=== PATIENT | male | born 1960 | race African-American/Black ===

== ENCOUNTER 2020-11-06 07:43 | Outpatient (CLI) | payer MEDICARE, SELFPAY ==
--- NOTE | ~2020-11-06 | CT_ITS ---
EXAMINATION:CT lung screening DATE: 11/06/2020 08:19 INDICATION: Personal history of tobacco dependence. Current smoker with 32 pack year history. TECHNIQUE: Computed tomography (CT) of the chest was performed without intravenous contrast. Automate d exposure control and iterative reconstruction technique were employed. The dose-length product (DLP ) was 83.42 mGy-cm. COMPARISON: None. FINDINGS: There is mild atelectasis bilaterally. There is mild bronchiectasis in right middle lobe. T here is a 3 mm nodule in right middle lobe. No pleural effusion. The heart size is normal. There are coronary artery calcifications. No pericardial effusion. There is mild bilateral gynecomastia. There is severe cervical spondylosis and moderate thoracic spondylosis. IMPRESSION: 1. Lung-RADS category 2: Benign appearance or behavior. Continue annual screening with noncontrast lo w-dose chest CT in 12 months. Reviewed, dictated and finalized at location B. IER SUPERVISOR IMPRESSION: 1. Lung-RADS category 2: Benign appearance or behavior. Continue annual screeni ng with noncontrast low-dose chest CT in 12 months.
== END 2020-11-06 07:44 | disposition home or self-care (01) ==
LOC: ANHIMG 07:51
PROVIDERS: PCP Internal Medicine; Visit Provider Nurse Practitioner
DX: Z87.891 Personal history of nicotine dependence (principal); J98.11 Atelectasis; J47.9 Bronchiectasis, uncomplicated; I25.10 Atherosclerotic heart disease of native coronary artery without angina pectoris; N62 Hypertrophy of breast; M47.813 Spondylosis without myelopathy or radiculopathy, cervicothoracic region
CPT/HCPCS: G0297

== ENCOUNTER 2022-04-27 22:04 | Emergency (ER) | payer MEDICARE, SELFPAY ==
[2022-04-27 22:06] VITALS: BP 122/78; PULSE 100; RESP 18; TEMP 36.7; O2SAT 100
--- NOTE | 2022-04-27 22:53 | ED.EYEPROB ---
HPI - Eye Problem General Chief complaint: Eye Problems Stated complaint: eye complaint Time Seen by Provider: 04/27/22 22:28 History of Present Illness HPI Narrative: 61-year-old male presented the emergency room complaints of something in my right eye . Patient states that he was gardening earlier this afternoon, and felt that he might of gotten dirt in his eye. Patient states that he rubbed his eye and was unable to get what ever foreign object out. Patient complains of changes and light sensitivity. Related Data Home Medications Medication Instructions Recorded Confirmed ascorbate calcium (vitamin C) 500 500 mg PO DAILY 10/04/20 03/01/21 mg tablet baclofen 20 mg tablet 20 mg PO TID 10/04/20 03/01/21 cyanocobalamin (vitamin B-12) 1,000 mcg PO DAILY 10/04/20 03/01/21 1,000 mcg capsule gabapentin 300 mg capsule 300 mg PO TID 10/04/20 03/01/21 vitamin E 200 unit capsule 200 unit PO DAILY 10/04/20 03/01/21 Allergies Allergy/AdvReac Type Severity Reaction Status Date / Time Penicillins Allergy Unknown Anaphylaxis,Not Unverified 04/27/22 22:12 Entered,Anaphylaxis,Not Entered Review of Systems Review of Systems: CONSTITUTIONAL: Denies fever, chills, or sweats. EYES: Visual changes right eye, discharge, area of redness ENT: Denies rhinorrhea, congestion, sore throat, or otalgia. CARDIOVASCULAR: Denies chest pain, palpitations, or edema. RESPIRATORY: Denies cough or dyspnea. GASTROINTESTINAL: Denies abdominal pain, nausea, vomiting, or diarrhea. GENITOURINARY: Denies dysuria or hematuria. SKIN: Denies rash or itching. MUSCULOSKELETAL: Denies back pain, joint pain, or myalgia. NEUROLOGIC: Denies headache, numbness, dizziness, or weakness. PSYCHIATRIC: Denies anxiety or depression. [facility] Past Medical History Medical History Osteoarthritis Surgical History Surgical History H/O Spinal surgery Spinal tumor 07/2015 Social History Social History Social History: caffeine-daily Smoking status: Former smoker Smoking end date: 11/30/06 Alcohol intake: current Alcohol use details: 2-3 drinks every day Exam Narrative: GENERAL: Well-appearing, well-nourished, and in no acute distress. HEAD: Normocephalic, atraumatic. EYES: PERRLA and EOMI. purulent drainage noted to the medial and lateral canthus. Linear corneal abrasion noted to the right eye extending from the 4 o'clock position to the 8 o'clock position ENT: Nares clear, no rhinorrhea or epistaxis. Mucous membranes moist. Oropharynx without tonsillar hypertrophy exudate or other lesions. Bilateral TMs pearly mcneill nonbulging CHEST: Clear to auscultation. No respiratory distress. No wheezes rales or rhonchi HEART: Regular rate and rhythm. No murmur heard. Normal peripheral pulses. EXTREMITIES: Normal range of motion. No edema. SKIN: Warm, dry, no rash. NEURO: No focal deficits. Alert and oriented x3. PSYCH: Normal mood and affect. Course Vital Signs Vital signs: Vital Signs Temperature 36.7 C 04/27/22 22:06 Pulse Rate 100 04/27/22 22:06 Respiratory Rate 18 04/27/22 22:06 Blood Pressure 122/78 04/27/22 22:06 Pulse Oximetry 100 04/27/22 22:06 Oxygen Delivery Room Air 04/27/22 22:06 Temperature 36.7 C 04/27/22 22:06 Pulse Rate 100 04/27/22 22:06 Respiratory Rate 18 04/27/22 22:06 Blood Pressure 122/78 04/27/22 22:06 Pulse Oximetry 100 04/27/22 22:06 Oxygen Delivery Room Air 04/27/22 22:06 Discharge Plan Discharge Clinical Impression: Corneal abrasion Patient Disposition: Home, Self-Care Condition: Stable Instructions: Antibiotic Form Prescriptions: New polymyxin B sulf-trimethoprim 10,000 unit- 1 mg/mL drops 1 drp RIGHT EYE Q3H 5 Days Qty: 10 0RF Rx Instructions: while awake; do not exceed 6 d
[2022-04-27] MEDS: TETANUS,DIPHTHERIA,AC PERTUSSIS ADULT (0.5 ML) BOOSTRIX IM (23:18)
[2022-04-27 23:30] VITALS: BP 126/86; PULSE 76; RESP 14; O2SAT 97
== END 2022-04-27 23:30 | disposition home or self-care (01) ==
LOC: ANHED 23:03
PROVIDERS: Emergency Provider Nurse Practitioner Family; PCP Internal Medicine
DX: S05.01XA Injury of conjunctiva and corneal abrasion without foreign body, right eye, initial encounter (principal); Z87.891 Personal history of nicotine dependence; Z23 Encounter for immunization; W45.8XXA Other foreign body or object entering through skin, initial encounter
CPT/HCPCS: 90471; 90715; 99283

== ENCOUNTER 2023-02-04 13:25 | Outpatient (RCR) | payer MEDICARE, SELFPAY ==
--- NOTE | 2023-02-04 14:40 | OTOPEVAL1 ---
Assessment and note entered by Renetta Ojeda, OTR/L Evaluation Information Assessment Status Evaluation Diagnosis bilateral shoulder pain Subjective Information Patient present to Outpatient OT with complaint of bilateral shoulder pain L worst than R due to over use with self propelling in wheelchair one day completing yard work in September 2022. Patient is paraplegic from a spinal tumor, using a wheelchair since 2014. Patient reports the pain began in September 2022 and persisted through December 2022 but has began to get better in the past few weeks. Patient reports pain in shoulders causes difficulties with lifting objects, sleeping is difficult when trying to sleep on L side. Reported Pain Level Pain Score 0,0: Self Report Assessment OT Clinical Summary Fam presents to outpatient OT with complaint of bilateral shoulder pain following over exertion in September 2022 when self propelling wheelchair in yard. Patient is paraplegic from a spinal tumor and has used a wheelchair since 2014. Patient reports since then has shoulder pain L side worse than R which is aggravated by propelling wheelchair for long distances, lifting objects. Patient demonstrates decreased shoulder strength bilaterally. Patient would benefit from skilled OT for HEP instruction, UE exercise, modalities, education on body mechanics in order to decrease pain and increase functional use of UEs. Plan of Care Interventions Therapeutic Exercise,Manual Therapy,Neuro Re- education,Therapeutic Activities,Hot Pack/Cold Pack,Self-Care/Home Management OT Services Indicated Yes Treatment Frequency and 1x/week, 4 weeks Duration These treatments will address the objective and functional deficits as defined above. The patient will be advanced safely and appropriately in order for the patient to progress towards his/her prior level of function. Additional exercises will be introduced and as well as a comprehensive home exercise program upon discharge, if needed, ?to ensure carryover of functional gains achieved in the clinic. This treatment plan has been reviewed and agreement upon by the patient.
--- NOTE | 2023-02-04 15:20 | OTOPEVAL1 ---
Assessment and note entered by Renetta Ojeda OTR/L Evaluation Information Assessment Status Evaluation Diagnosis bilateral shoulder pain Subjective Information Patient present to Outpatient OT with complaint of bilateral shoulder pain L worst than R due to over use with self propelling in wheelchair one day completing yard work in September 2022. Patient is paraplegic from a spinal tumor, using a wheelchair since 2014. Patient reports the pain began in September 2022 and persisted through December 2022 but has began to get better in the past few weeks. Patient reports pain in shoulders causes difficulties with lifting objects, sleeping is difficult when trying to sleep on L side. Reported Pain Level Pain Score 0,0: Self Report Assessment OT Clinical Summary Fam presents to outpatient OT with complaint of bilateral shoulder pain following over exertion in September 2022 when self propelling wheelchair in yard. Patient is paraplegic from a spinal tumor and has used a wheelchair since 2014. Patient reports since then has shoulder pain L side worse than R which is aggravated by propelling wheelchair for long distances, lifting objects. Patient demonstrates decreased shoulder strength bilaterally. Patient would benefit from skilled OT for HEP instruction, UE exercise, modalities, education on body mechanics in order to decrease pain and increase functional use of UEs. Patient plan to complete issued HEP independently at home prior to scheduling more OT appointments, plan to follow up in two months if needed. Plan of Care Interventions Therapeutic Exercise,Manual Therapy,Neuro Re- education,Therapeutic Activities,Hot Pack/Cold Pack,Self-Care/Home Management OT Services Indicated Yes Treatment Frequency and Will follow up in 2 months if needed. Duration These treatments will address the objective and functional deficits as defined above. The patient will be advanced safely and appropriately in order for the patient to progress towards his/her prior level of function. Additional exercises will be introduced and as well as a comprehensive home exercise program upon discharge, if needed, ?to ensure carryover of functional gains achieved in the clinic. This treatment plan has been reviewed and agreement upon by the patient.
--- NOTE | 2023-02-04 17:14 | PTOPEVAL1 ---
Assessment and note entered by Preeti Miller, PT, DPT Evaluation Information Assessment Status Evaluation Diagnosis Paraplegia s/p astrocytoma Onset 2013 Subjective Information Pt states he has been in a wheelchair since 2013 when he has spinal surgery. He states he can have a caregiver 24 hours a week but does not utilize these the way he should. He states while his diagnosis is not progress, his spasticity has increased. He states his neurologist wants him to come to therapy to measure his spasticity. He reports missing the chair and ending up on the floor about a month ago. He lives alone. Reported Pain Level Pain Score 0: Self Report Pain Score 0,0: Self Report Assessment PT Clinical Summary Fam presents to therapy today for his initial evaluation with diagnosis of paraplegia. Pt states he has spent almost 10 years in a wheelchair. Today he demonstrates significant tightness and tone in his BLE. He demonstrate trace muscle responses throughout his BLEs. Today he was educated in a home stretching program and a handout was given for him to teach his caregiver. Pt would like to complete the issues HEP independently prior to deciding if he would like to continue with in person skilled therapy. He has not been scheduled out at this time. If pt elects to continue therapy, skilled services are indicated to implement techniques to decrease tone , for passive stretching, core strengthening, and seated balance exercises. Plan of Care PT Services Indicated Yes Treatment Frequency and follow up in 2 months if needed Duration These treatments will address the objective and functional deficits as defined above. The patient will be advanced safely and appropriately in order for the patient to progress towards his/her prior level of function. Additional exercises will be introduced and as well as a comprehensive home exercise program upon discharge, if needed, ?to ensure carryover of functional gains achieved in the clinic. This treatment plan has been reviewed and agreement upon by the patient.
--- NOTE | 2023-05-06 09:24 | PTOPDC ---
Assessment and note entered by Preeti Miller, PT, DPT Evaluation Information Assessment Status Discharge - pt not present Diagnosis Paraplegia s/p astrocytoma Onset 2013 Subjective Information Pt was evaluated on 02/04/23 and elected not to complete regularly scheduled PT sessions. He stated he would follow up in the next month or so if he changed his mind. He has not followed up. Assessment PT Clinical Summary Fam completed his evaluation on 02/04/23, he did not complete any treatments. He will be discharged at this time. If he needs additional therapy at a later time he will need a new order.
--- NOTE | 2023-05-06 10:07 | OTOPDC ---
Assessment and note entered by SHEA Suarez/Kev Evaluation Information Assessment Status Discharge - Pt Not Presen Diagnosis bilateral shoulder pain Subjective Information Patient present to Outpatient OT for an evaluation on 02/04/2023. Patient choose to not complete any OT treatments at this time and had planned to follow up in the next month if needed. Patient has not followed up with OT at this time. Assessment OT Clinical Summary Fam was evaluated for Occupational Therapy on 02/04/2023. He did not complete any treatments but was issued a HEP on evaluation. Patient will be discharged from therapy at this time. Patient will need a new OT order to participate in therapy at a later time. Plan of Care OT Services Indicated No
== END 2023-05-05 23:59 | disposition home or self-care (01) ==
LOC: ANHGOSHOT 13:25
PROVIDERS: PCP Internal Medicine
DX: G82.20 Paraplegia, unspecified (principal); M25.511 Pain in right shoulder; M25.512 Pain in left shoulder; G89.29 Other chronic pain
CPT/HCPCS: 97110; 97162; 97165; 97530

== ENCOUNTER 2023-03-26 14:08 | Outpatient (CLI) | payer MEDICARE, SELFPAY ==
[2023-03-26 19:17] LABS: Alanine Aminotransferase 24 U/L (6-50); Albumin Level 4.3 g/dL (3.5-5.1); Alkaline Phosphatase 97 U/L (38-126); Anion Gap 6 mmol/L (8-16); Aspartate Amino Transferase 45 U/L (17-59); Bilirubin,Total 0.6 mg/dL (0.2-1.3); Blood Urea Nitrogen 11 mg/dL (9-20); Calcium 9.1 mg/dL (8.4-10.2); Carbon Dioxide 25 mmol/L (22-30); Chloride 106 mmol/L (98-107); Cholesterol 164 mg/dL (0-200); Estimated Glomerular Filt Rate > 60; Glucose 74 mg/dL (65-110); HDL Direct 65 mg/dL; Sodium 137 mmol/L (137-145); Triglycerides 74 mg/dL (<150)
[2023-03-26 19:18] LABS: Vitamin D 25 Hydroxy 28.2 ng/mL
[2023-03-26 19:28] LABS: LDL Cholesterol Direct 72 mg/dL
[2023-03-26 19:43] LABS: Basophils Percent Auto 0.5 % (0.2-1.2); Eosinophils Absolute Auto 0.3 K/mm3 (0-0.3); Eosinophils Percent Auto 7.3 % (0-4.4); Hematocrit 40.9 % (42.0-52.0); Lymphocytes Absolute Auto 0.98 K/mm3 (0.9-3.2); Lymphocytes Percent Auto 24.6 % (18.3-44.2); Mean Corpuscular HGB Conc 34.2 g/dl (32-36); Mean Corpuscular Hemoglobin 32.5 pg (26-34); Mean Corpuscular Volume 94.9 fl (80-100); Mean Platelet Volume 11.7 fl (7.4-10.4); Monocytes Absolute Auto 0.6 K/mm3 (0.1-0.6); Monocytes Percent Auto 15.1 % (2.6-8.5); Neutrophils Absolute Auto 2.1 K/mm3 (1.3-6.7); Neutrophils Percent Auto 52.5 % (45.5-73.1); Platelet Count Result 168 k/mm3 (150-375); Red Blood Count 4.31 M/mm3 (4.6-6.20); Red Cell Distribution Width 12.9 % (11.5-14.5)
[2023-03-26 19:45] LABS: Prostate Specific Antigen 1.8 ng/mL (< OR = 4.0)
[2023-03-26 20:19] LABS: Folic Acid 8.9 ng/mL (2.76->20)
== END 2023-03-26 14:09 | disposition home or self-care (01) ==
LOC: ANHGOSHLAB 14:10
PROVIDERS: PCP Internal Medicine; Visit Provider Nurse Practitioner
DX: E55.9 Vitamin D deficiency, unspecified (principal); E53.8 Deficiency of other specified B group vitamins; M62.838 Other muscle spasm; F12.90 Cannabis use, unspecified, uncomplicated; Z12.5 Encounter for screening for malignant neoplasm of prostate; Z13.220 Encounter for screening for lipoid disorders; Z13.29 Encounter for screening for other suspected endocrine disorder
CPT/HCPCS: 36415; 80053; 80061; 82306; 82607; 82746; 84153; 84443; 85025; G0103

== ENCOUNTER 2025-06-28 13:51 | Outpatient (CLI) | payer MEDICARE, SELFPAY ==
--- OUTSIDE RECORDS SUMMARY | 2025-06-28 14:01 | XMS_ITS | Clinical Summary ---
Author Organization [facility] Address [address] [place] [address] Care Team Providers Care Sergeant At Arms Name Role Phone Tl Nascimento DO Primary Care Provider [phone] Allergies Active Allergy Reactions Criticality Noted Date Comments Mite Extract Unknown Penicillins Anaphylaxis,Nausea A nd Vomiting High 04/16/2015 Reaction: Anaphylaxis, Shock, Medications vitamin b complex tablet daily. Activ e cyanocobalamin 2,000 mcg tablet daily. 7 Active ascorbic acid (VITAMIN C) 1,000 mg tablet daily. Acti ve vitamin E mixed 1,000 unit capsule daily. Active cholecalciferol (VITAMIN D-3) 5,000 unit capsuleIndicati ons:Vitamin D Deficiency Take 1 capsule (5,000 Units total) by mouth daily 30 capsule 11 2 Active polymyxin B-trimethoprim (POLYTRIM) ophthalmic solution INSTILL 1 DROP IN RIGHT EYE EVERY 3 HOURS WHILE AWAKE FOR 5 DAYS. DO NOT EXCEED 6 DOSES IN 24 HOURS 2 Active diclofenac sodium (VOLTAREN) 1 % gelIndications: Osteoarthritis, shoulder pain Apply 4 g topically 4 (four) times a day 50 g 3 3 Active triamcinolone (KENALOG) 0.025 % cream APPLY TOPICALLY TO THE AFFECTED AREA TWICE DAILY 30 g 2 3 Active baclofen (LIORESAL) 20 mg tabletIndicatio ns:Muscle weakness of lower extremity,Muscl e spasticity TAKE ONE TABLET (20MG) BY MOUTH FOUR TIMES DAILY 360 tablet 3 5 Active diazePAM (VALIUM) 2 mg tabletIndicatio ns:Muscle Spasm,severe leg muscle spasticity Take 1 tablet (2 mg total) by mouth every 12 (twelve) hours as needed for anxiety 60 tablet 5 5 Active gabapentin (NEURONTIN) 300 mg capsule TAKE 1 CAPSULE(300 MG) BY MOUTH FOUR TIMES DAILY 360 capsule 3 5 Active Active Problems Problem Noted Date Diagnosed Date Abnormality of gait due to impairment of balance 01/14/2023 Wheelchair dependence 11/18/2019 Pressure injury of buttock, unstageable 07/19/20 19 Paraplegia 09/20/2018 Muscle spasticity 05/12/2018 Knee pain 04/13/2017 Peripheral neuropathic pain 02/24/2017 At risk for joint contracture 12/11/2016 Chronic pain 10/30/2016 Muscle spasms of neck 09/19/2016 Pain of metastatic malignancy 09/19/2016 Arthritis 09/18/2016 Pain of lower extremity 09/18/2016 Notalgia 10/02/2015 Malignant neoplasm of spinal cord 2015 Muscle weakness of lower extremity 05/14/2015 Paraparesis 05/14/2015 Personal history of other benign neoplasm 2014 Immunizations Immunization Administration Dates Next Due Influenza, Unspecified 2015 Surgical History Surgery Date Site/Laterality Comments BACK SURGERY Upper Back Surgery - (Added by STEPHANIE Conv) SD ARTHROSCOPY KNEE DIAGNOST IC W/WO SYNOVIAL BX SPX Arthroscopy Knee - (Added by STEPHANIE Conv) TUMOR REMOVAL Social History Tobacco Use Types Packs/Day Years Used Date Smoking Tobacco: Former Smokeless Tobacco: Never Tobacco Cessation:Counseling Given: Not Answered AUDIT-C Answer Date Recorded Q1: How often do you have a drink containing alc ohol? Monthly or less 08/07/2022 Q2: How many drinks containi ng alcohol do you have on a typical day when you are drinking? 1 or 2 08/07/2022 Q3: How often do you have si x or more drinks on one occasion? 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 Gender Identity Not on file Sexual Orientation Not on file Obstetrics History Last Filed Vital Signs Vital Sign Reading Time Taken Comments Blood Pressure 129/82 02/14/2025 8:44 AM CDT Pulse 86 02/14/2025 8:44 AM CDT Temperature 36.3 C (97.3 F) 02/20/2020 12:15 PM CDT Respiratory Rate 19 07/14/2022 9:12 AM CDT Oxygen Saturation 99% 01/31/2022 4:35 PM THERMOSTATIC CONTROLS SUPERVISOR Inhaled Oxygen Concentration - - Weight 81.6 kg (180 lb) 02/14/2025 8:44 AM CDT Height 172.7 cm (5' 8) 02/14/2025 8:44 AM CDT Body Mass Index 27.37 02/14/2025 8:44 AM CDT Plan of Treatment Health Maintenance Due Date Last Done Comments Colon Cancer Screening-Colonoscopy 1958 Depression Screening 1958 Hepatitis C Screening 1958 Prostate Cancer Screening-PSA 1958 DTaP/Tdap/Td Vaccine (1 - Tdap) 1969 Hepatitis B Screening 1976 Pneumococcal vaccine 65+ (1 of 1 - PCV) 2008 Zoster Vaccine (1 of 2) 2008 Fall Risk Assessment 11/15/2020 11/15/2019 Abdominal Aortic Aneurysm (A AA) Screen 2023 Well Visit 65+ 2023 Covid-19 Vaccine ( season) 2024 11/21/2021, 05/17/2021, 03/29/2021 Influenza Vaccine (#1) 2025 2015 Insurance [facility] MEDICARE HMO [employer] MEDICARE PPO MEDICARE [facility] Address: [address] [address] [place] [address] [employer] MEDICARE PPO Care Teams Sergeant At Arms Relationship Specialty Start Date End Date Tl Nascimento DO PCP - General 02/18/18
--- OUTSIDE RECORDS SUMMARY | 2025-06-28 14:01 | XMS_ITS | Clinical Summary ---
Author Organization [facility] Address [facility] [place] [address] Care Team Providers Care Teacher Private Name Role Phone Kilo Lamar MD Primary Care Provider Chato hopkins Social History Tobacco Use Types Packs/Day Years Used Date Smoking Tobacco: Never Assessed Sex and Gender Information Value Date Recorded Sex Assigned at Not on file Legal Sex Male 8:56 PM CDT Gender Identity Not on file Sexual Orientation Not on file Last Filed Vital Signs Vital Sign Reading Time Taken Comments Blood Pressure 134/84 02/27/2017 9:38 AM CDT Pulse 93 02/27/2017 9:38 AM CDT Temperature - - Respiratory Rate - - Oxygen Saturation - - Inhaled Oxygen Concentration - - Weight 75.3 kg (166 lb) 02/27/2017 9:38 AM CDT Height 172.7 cm (5' 8) 02/27/2017 9:38 AM CDT Body Mass Index 25.24 02/27/2017 9:38 AM CDT Plan of Treatment Health Maintenance Due Date Last Done Comments Colorectal Cancer Screening Colonoscopy (10 Years) 1958 Hepatitis C 1976 DTaP, Tdap and Td Vaccines ( 1 - Tdap) 1977 Pneumococcal Vaccine: 50+ Ye ars (1 of 1 - PCV) 2008 Zoster Vaccines (1 of 2) 2008 COVID-19 Vaccine ( - 2023-2 5 season) 2024 RSV Immunization or 60+ Years (1 - 1-dose 75+ series) 2033 Meningococcal B Vaccine Aged Out No l onger eligible based on patient's age to complete this topic Meningococcal Vaccine Aged Out No jann paul eligible based on patient's age to complete this topic RSV Immunizations Under 20 Months Aged Out No longer eligible based on patient's age to complete this topic Care Teams Teacher Private Relationship Specialty Start Date End Date Kilo Lamar MD PCP - General 04/29/17
--- OUTSIDE RECORDS SUMMARY | 2025-06-28 14:01 | XMS_ITS | Referral Summary ---
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 Gender Identity Not on file Sexual Orientation Not on file Last Filed Vital Signs Vital Sign Reading Time Taken Comments Blood Pressure 129/82 02/14/2025 8:44 AM CDT Pulse 86 02/14/2025 8:44 AM CDT Temperature 36.3 C (97.3 F) 02/20/2020 12:15 PM CDT Respiratory Rate 19 07/14/2022 9:12 AM CDT Oxygen Saturation 99% 01/31/2022 4:35 PM 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
[2025-06-28 19:56] LABS: Hematocrit 43.4 % (42.0-52.0); Hemoglobin 14.2 g/dL (14.0-18.0); Immature Granulocyte Percent A 0.2 % (0-0.5); Lymphocytes Absolute Auto 0.94 K/mm3 (0.9-3.2); Mean Corpuscular HGB Conc 32.7 g/dl (32-36); Mean Corpuscular Hemoglobin 30.7 pg (26-34); Mean Corpuscular Volume 93.9 fl (80-100); Nucleated Red Blood Cells Absolute Auto 0.000 K/mm3 (0.0-0.012); Nucleated Red Blood Cells Perc 0.0 % (0.0-0.2); Platelet Count Result 166 k/mm3 (150-375); Red Blood Count 4.62 M/mm3 (4.6-6.20); White Blood Count 4.0 K/mm3 (4.5-10.0)
[2025-06-28 20:05] LABS: Alanine Aminotransferase 21 U/L (6-50); Albumin Level 4.2 g/dL (3.5-5.1); Alkaline Phosphatase 101 U/L (38-126); Anion Gap 5 mmol/L (4-12); Aspartate Amino Transferase 40 U/L (17-59); Bilirubin,Total 0.7 mg/dL (0.2-1.3); Blood Urea Nitrogen 11 mg/dL (9-20); Calcium 9.3 mg/dL (8.4-10.2); Carbon Dioxide 27 mmol/L (22-30); Chloride 107 mmol/L (98-107); Cholesterol 186 mg/dL (0-200); Estimated Glomerular Filt Rate > 60; Glucose 68 mg/dL (65-110); HDL Direct 66 mg/dL; Potassium 3.9 mmol/L (3.4-5.0); Sodium 139 mmol/L (137-145); Total Protein 7.3 g/dL (6.3-8.2); Triglycerides 81 mg/dL (<150)
[2025-06-28 20:41] LABS: Prostate Specific Antigen 2.3 ng/mL (< OR = 4.0)
== END 2025-06-28 13:52 | disposition home or self-care (01) ==
LOC: ANHGOSHLAB 13:52
PROVIDERS: PCP Internal Medicine; Visit Provider Nurse Practitioner
DX: E78.5 Hyperlipidemia, unspecified (principal); Z13.29 Encounter for screening for other suspected endocrine disorder; Z12.5 Encounter for screening for malignant neoplasm of prostate
CPT/HCPCS: 36415; 80053; 80061; 84153; 85025; G0103